=== PATIENT | male | born 1970 | race Caucasian/White ===

== ENCOUNTER 2016-09-26 12:36 | Emergency (ER) | payer BC ==
[2016-09-26] MEDS ORDERED: IPRATROPIUM/ALBUTEROL 3 ML DEYVIAL IH ONE (13:22)
[2016-09-26] MEDS ORDERED: ACETAMINOPHEN 500 MG TAB PO ONE (13:39)
--- NOTE | 2016-09-26 13:55 | EDPHY ---
H & P Time Seen by Provider: 09/26/16 13:24 HPI/ROS: CHIEF COMPLAINT: Flu-like symptoms. HISTORY OF PRESENT ILLNESS: The patient is a 46 year old male who presents to the emergency department with flu like symptoms. Over the past week the patient has been coughing and developed a low grade fever. His daughter recently tested positive for influenza. He complains of severe headache and body aches. He has been taking 400mg Advil, last dose was last night. He is congested and has been taking Theraflu for the past week. The patient has been drinking plenty of fluids. He denies chest pain or shortness of breath. REVIEW OF SYSTEMS: A comprehensive 10 point review of systems is otherwise negative aside from elements mentioned in the history of present illness. Past Medical/Surgical History: Denies. Social History: . Recently moved to [place]. Smoking Status: Current every day smoker Physical Exam: General Appearance: Alert, pleasant, nontoxic Eyes: Pupils equal and round, no conjunctival pallor or injection ENT, Mouth: Mucous membranes moist Neck: Normal inspection, supple Respiratory: Lungs are clear to auscultation Cardiovascular: Regular rate and rhythm Gastrointestinal: Abdomen is soft and non-tender Neurological: Alert and oriented, nonfocal exam Skin: Warm and dry, no rash Extremities: Nontender, no pedal edema Psychiatric: Mood and affect normal Constitutional: Initial Vital Signs Temperature (C) 36.7 C 09/26/16 12:39 Heart Rate 91 09/26/16 12:39 Respiratory Rate 20 09/26/16 12:39 Blood Pressure 131/88 H 09/26/16 12:39 O2 Sat (%) 99 09/26/16 12:39 O2 Delivery Mode Room Air Allergies/Adverse Reactions: No Known Allergies Allergy (Unverified 09/26/16 12:39) Home Medications: Medication Instructions Recorded Albuterol 2 puffs IH TID PRN #1 aerosol 09/26/16 Hydrocodone/APAP 5/325 [[place] 1 - 2 tab PO Q4H PRN #10 tab 09/26/16 5/325] Medical Decision Making - Diagnostics Imaging: Study: X-ray of the chest was obtained. Results: Normal. Images were interpreted by the radiologist, Dr. Vogt. I viewed the images myself on the PACS system. ED Course/Re-evaluation: Patient presents with a one week h/o influenza sx and known household exposure to influenza. IV normal saline 1 L given at patient request. Toradol 30 mg IV given for myalgias and headache. The patient felt better after these medications. The patient received a DuoNeb and after felt his cough improved. On reevaluation, his lungs are clear, no wheezing. Chest x-ray is normal. No evidence of pneumonia, meningitis or other serious bacterial infection. He is safe and stable for discharge. Differential Diagnosis: Includes though is not limited to pneumonia, otitis media, acute sinusitis, meningitis. - Data Points Laboratory Results: 09/26/16 13:24 Influenza Typ A,B (DFA) NEGATIVE FOR FLU (NEGATIVE) Medications Given: Discontinued Medications Acetaminophen (Tylenol) 1,000 mg PO EDNOW ONE Stop: 09/26/16 13:40 Last Admin: 09/26/16 13:45 Dose: 1,000 mg Albuterol/Ipratropium (Duoneb) 3 ml IH EDNOW ONE Stop: 09/26/16 13:23 Last Admin: 09/26/16 13:35 Dose: 3 ml Sodium Chloride (Ns) 1,000 mls @ 0 mls/hr IV ONCE ONE PRN Reason: Wide Open Stop: 09/26/16 14:01 Last Admin: 09/26/16 14:23 Dose: 1,000 mls Ketorolac Tromethamine (Toradol) 30 mg IVP EDNOW ONE Stop: 09/26/16 14:01 Last Admin: 09/26/16 14:23 Dose: 30 mg Departure - Departure Disposition: Home, Routine, Self-Care Clinical Impression: Influenza Condition: Good Instructions: Influenza (ED) Additional Instructions: 1. Take 600mg Ibuprofen. Alternate Tylenol and Ibuprofen every 3 hours. Note: do not take Acetaminophen with Hydrocodone (Vicodin, Lortab) or Oycodone (Percocet). These medications also contain Acetaminophen. No more than 3000mg of Acetaminophen should be taken in 24 hours (for an adult).Alternate Tylenol and Ibuprofen every 3 hours. 2. Drink plenty of fluids. 3. You have been referred to a primary care physician. Followup if you continue to have symptoms. Referrals: Yun Nelson [Other] - As per Instructions Prescriptions: Albuterol 2 puffs IH TID PRN #1 aerosol PRN Reason: cough Hydrocodone/APAP 5/325 [[place] 5/325] 1 - 2 tab PO Q4H PRN #10 tab PRN Reason: Pain, Moderate Report Scribed for: Adrienne Pena Report Scribed by: Elizabeth Drew Date of Report: 09/26/16 Time of Report: 13:48 Physician Review and Approval Statement: 09/26/16 13:48 Portions of this note were transcribed by a medical scheduler. I personally performed the history, physical exam, and medical decision-making; and confirmed the accuracy of the information in the transcribed note.
[2016-09-26] MEDS ORDERED: NS 1,000 ML IV ONE (14:00)
[2016-09-26] MEDS ORDERED: KETOROLAC 30 MG/1 ML SDV IVP ONE (14:00)
[2016-09-26 15:05] VITALS: BP 119/60; PULSE 92; RESP 16; TEMP 98.9; O2SAT 94
== END 2016-09-26 15:05 | disposition home or self-care (01) ==
DX: J11.1 Influenza due to unidentified influenza virus with other respiratory manifestations (principal); F17.200 Nicotine dependence, unspecified, uncomplicated
CPT/HCPCS: 96374; J1885